=== PATIENT | female | born 1955 | race Caucasian/White ===

== ENCOUNTER → 2021-10-10 | Outpatient (CLI) | payer MEDICARE, BC, OTHER ==
[~2021-10-10] MED LIST: ISOVUE-370 76% 100ML VIAL As Ordered ONE
== END ==
LOC: M RAD 12:31
PROVIDERS: ATTEND Family Medicine
DX: R10.814 Left lower quadrant abdominal tenderness (principal); K57.30 Diverticulosis of large intestine without perforation or abscess without bleeding; D17.5 Benign lipomatous neoplasm of intra-abdominal organs
CPT/HCPCS: 74177; Q9967

== ENCOUNTER → 2023-04-08 | Outpatient (CLI) | payer MEDICARE, BC, OTHER | LOC: M RAD 12:03 | PROVIDERS: ATTEND Family Medicine | DX: I80.201 Phlebitis and thrombophlebitis of unspecified deep vessels of right lower extremity (principal); M79.661 Pain in right lower leg ==

== ENCOUNTER → 2025-01-15 | Outpatient (CLI) | payer MEDICARE, BC | LOC: M RAD 11:40 | PROVIDERS: ATTEND Nurse Practitioner Family | DX: D17.71 Benign lipomatous neoplasm of kidney (principal) ==